=== PATIENT | male | born 1995 | race Two or more races ===

== ENCOUNTER 2024-03-27 10:59 | Emergency (ER) | payer BC, SELFPAY ==
[2024-03-27 11:03] VITALS: BMI 32.3
--- NOTE | 2024-03-27 11:03 | XR_ITS ---
Examination: Duplex scan of the lower extremity, unilateral left complete Date and time of exam: March 27, 2024 1108 hours INDICATIONS: Left Leg swelling and pain beginning 2 days ago Technique: Duplex scan of the extremity veins using B-mode/grayscale imaging and Doppler spectral analysis and color flow Attention is directed to internal echogenicity, compression and augmentation involving these veins, color flow assessment, spectral analysis Findings: Major deep venous structures in the extremity demonstrate normal course and caliber. There is no evidence of deep vein thrombosis. Normal color flow and spectral analysis Impression: Negative for DVT..
--- NOTE | 2024-03-27 11:35 | EDNOTE_ITS ---
<Statement entered by Marilou Serrato MD - 03/28/24 16:17> As co-signing physician, I was present and available for consult prn. I concur with the plan and care as documented by the midlevel provider. 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 Limitations: no limitations Related Data Allergies Allergy/AdvReac Type Severity Reaction Status Date / Time No Known Allergies Allergy Verified 03/27/24 11:00 Review of Systems Review of Systems Systems Reviewed: All systems reviewed, normal except as documented Constitutional Constitutional: Reports system reviewed and no additional complaints, except as documented, Denies fever(s) and Denies headache(s) Eyes Eyes: Reports system reviewed and no additional complaints, except as documented and Denies blurry vision ENT Ears, Nose, Mouth, and Throat: Reports system reviewed and no additional complaints, except as documented, Denies headache(s), Denies nasal congestion and Denies nasal discharge Cardiovascular Cardiovascular: Reports system reviewed and no additional complaints, except as documented, Denies chest pain and Denies dyspnea Respiratory Respiratory: Reports system reviewed and no additional complaints, except as documented, Denies chest congestion, Denies cough and Denies dyspnea Gastrointestinal Gastrointestinal: Reports system reviewed and no additional complaints, except as documented and Denies abdominal pain Musculoskeletal Musculoskeletal: Reports system reviewed and no additional complaints, except as documented and Reports other (Left leg pain) Integumentary/Breasts Skin/Breast: Reports system reviewed and no additional complaints, except as documented and Denies rash Neurologic Neurologic: Reports system reviewed and no additional complaints, except as documented, Reports as per HPI and Denies headache(s) Past Medical History Social History SMOKING STATUS: Never smoker ED Exam General Limitations: Present no limitations General appearance: Present alert and in no apparent distress Head Head exam: Present atraumatic Eye Eye exam: Present normal appearance, PERRL and EOMI ENT ENT exam: Present normal exam, normal oropharynx and mucous membranes moist Neck Neck exam: Present normal inspection, full ROM and trachea midline Chest Chest inspection: Present normal inspection and symmetric chest wall rise Respiratory Respiratory exam: Present normal lung sounds bilaterally Cardiovascular Cardiovascular exam: Present regular rate, normal rhythm and normal heart sounds Abdominal Exam Abdominal exam: Present soft and normal bowel sounds Extremities Exam Extremities exam: Present full ROM, tenderness, normal capillary refill and calf tenderness (Leg pain); Absent pedal edema or joint swelling Back Exam Back exam: Present normal inspection and full ROM Neurological Exam Neurological exam: Present alert, oriented X3 and CN II-XII intact Psychiatric Psychiatric exam: Present normal affect and normal mood Skin Skin exam: Present warm, dry, intact and normal color Course Quality Measures none Orders Category Date Time Status US venous doppler LE LT Stat Exams 03/27/24 11:03 Completed Vital Signs Vital signs: Vital Signs Temperature 98.5 F 03/27/24 11:56 Pulse Rate 100 03/27/24 11:56 Respiratory Rate 18 03/27/24 11:56 Blood Pressure 151/93 H 03/27/24 11:56 Pulse Oximetry (%) 97 03/27/24 11:56 Oxygen Delivery Method Room Air 03/27/24 11:56 O2 saturation 97% room air within normal limits Extremity Injury, Lower MDM Narrative MDM Narrative:: 28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 Patient requesting ultrasound to rule out DVT Ultrasound obtained no acute DVT noted Clinically patient has no cellulitis or abscess or DVT most likely is muscular in nature Patient discharged home in no distress to follow-up with primary care doctor in the next 24 to 48 hours and for any worsening symptoms to return to the ER immediately Patient data External records reviewed:: [facility] previous records Clinical information provided by:: patient Social determinants that could affect healthcare access:: none Patient has the following chronic illnesses:: None How is presenting disease/condition affected by chronic disease/condition?: no chronic disease Evaluation data The following diagnostics were reviewed and interpreted by me:: lab results and radiology exam(s) Lab and/or radiology exams considered but not ordered:: radiology obtained Interpretation Summary: Reviewed by me Medications / Prescriptions Medications or Prescriptions considered but not ordered:: Given no meds Medication administrations:: Given no meds Consultations Consultation(s) initiated? (list below): No Diagnosis Extremity Injury, Lower Differential Diagnosis: other (Leg sprain, DVT, cellulitis,) Most likely diagnosis given after review of the tests above:: Leg pain Admission Indicated Admission indicated?: not indicated Admission Request Was there a request for admission?: No Disposition Plan Disposition Plan: Discharge Discharge Attestation Discharge Attestation: The patient and all family members were given an opportunity to ask questions and understood the discharge instructions. Discharge instructions specifically effects, indications for sooner follow up or return to the emergency department, and the expected course of current diagnosis. Patient condition: Stable Discharge Plan Plan Patient Disposition: HOME (Self Care) Disposition Comment: Stable Problem List Clinical Impression: Pain in left leg Patient/Caregiver Discharge Instructions Education Materials: ED Myalgias Additional Instructions: Please follow up with your primary care doctor in the next 24-48hrs for any worsening symptoms return here immediately Print Language: Malagasy Stand Alone Forms: [employer] Award Info., Patient Portal Info Letter PA/SHOP CLERK Supervising Physician PA/TRINA Supervising Physician: Dr. SERRATO
[2024-03-27 11:56] VITALS: BP 151/93; PULSE 100; RESP 18; TEMP 36.9; O2SAT 97; BMI 32.3
== END 2024-03-27 13:40 | disposition home or self-care (01) ==
PROVIDERS: Emergency Provider Emergency Medicine; PCP Family Medicine
DX: M25.562 Pain in left knee (principal)
CPT/HCPCS: 93971; 99284